=== PATIENT | male | born 1955 | race Two or more races ===

== ENCOUNTER 2018-04-12 15:11 | Emergency (ER) | payer OTHER, MEDICAID ==
[~2018-04-12] VITALS: Ht 185.4 cm; Wt 82.1 kg
[2018-04-12] MEDS ORDERED: SODIUM CHLORIDE 0.9% 500 ML IVB ONE (15:18)
[2018-04-12 16:24] LABS: Basophils # (auto) 0 uL; Basophils % (auto) 0.4 % (0.0-2.0); Chloride 103 mmol/L (98-107); Eosinophils # (auto) 0.1 uL; Eosinophils % (auto) 0.9 % (0.0-7.0); Hematocrit 29.1 % (41.0-53.0); Hemoglobin 9.4 g/dL (13.5-17.5); Lymphocytes % (auto) 33.2 % (10.0-50.0); Mean Corpuscular Hemoglobin 29.9 pg (28.0-32.0); Mean Corpuscular Hgb Conc. 32.4 g/dL (32.0-36.0); Mean Corpuscular Volume 92.2 fL (80.0-100.0); Monocytes # (auto) 1.2 uL; Monocytes % (auto) 13.7 % (0.0-12.0); Neutrophils # (auto) 4.7 uL; Neutrophils % (auto) 51.8 % (37.0-80.0); Nucleated Red Blood Cells % 0.1 %; Platelet Count (auto) 435 10^3/uL (140-450); Red Blood Cells 3.15 10^6/uL (4.5-5.90); Red Cell Distribution Width 15.6 % (11.8-14.3); Sodium 140 mmol/L (136-145)
[2018-04-12 16:28] LABS: Alanine Aminotransferase 21 U/L (16-61); Albumin 2.6 g/dL (3.4-5.0); Anion Gap 10 (5-15); Aspartate Aminotransferase 26 U/L (15-37); BUN/Creatinine Ratio 8.8; Blood Urea Nitrogen 10 mg/dL (7-18); Carbon Dioxide 27 mmol/L (21-32); GFR African American 84 mL/min; GFR Non-African American 70 mL/min; Glucose 87 mg/dL (74-106); Lipase 87 U/L (73-393); Magnesium 1.7 mg/dL (1.6-2.6)
[2018-04-12 16:32] LABS: Alkaline Phosphatase 54 U/L (45-117); Bilirubin, Total 0.2 mg/dL (0.2-1.0); Total Protein 8.7 g/dL (6.4-8.2)
[2018-04-12 16:35] VITALS: BP 126/68
[2018-04-12 17:03] LABS: Urine Bacteria NONE SEEN /hpf (None Seen); Urine Blood Negative /uL (Negative); Urine Mucus FEW (None Seen); Urine Specific Gravity 1.016 (1.001-1.035); Urine WBC 1 /hpf (0 - 3)
[2018-04-12] MEDS ORDERED: MORPHINE SULFATE 4 MG/ML SYR/VIAL IV ONE (17:15)
[2018-04-12] MEDS ORDERED: ONDANSETRON HCL 4 MG/2 ML VIAL IV ONE (17:15)
== END 2018-04-12 18:42 | disposition home or self-care (01) ==
LOC: ER 15:18
DX: K91.89 Other postprocedural complications and disorders of digestive system (principal); I10 Essential (primary) hypertension; J44.9 Chronic obstructive pulmonary disease, unspecified; F17.210 Nicotine dependence, cigarettes, uncomplicated; Z90.89 Acquired absence of other organs; Z98.890 Other specified postprocedural states
CPT/HCPCS: 36415; 71045; 74176; 80053; 81001; 83605; 83690; 83735; 84484; 85025; 87040; 93005; 94761; 96374; 96375; 99284; J2270; J2405; J7030; 96361

== ENCOUNTER 2018-11-07 09:00 | Emergency (ER) | payer OTHER, MEDICAID ==
[~2018-11-07] VITALS: Ht 182.9 cm; Wt 86.2 kg
[2018-11-07] MEDS: HYDROmorphone HCL 2 MG/ML VL IV ONE (11:10)
[2018-11-07] MEDS: DexAMETHasone SOD PHOS 10MG/1ML VIAL INJ IV ONE (11:10)
[2018-11-07] MEDS: SODIUM CHLORIDE 0.9% 1,000 ML IV ONE (11:10)
[2018-11-07] MEDS: METOCLOPRAMIDE HCL 5MG/ml INJ 2ml VIAL IV ONE (11:11)
[2018-11-07 11:29] LABS: Basophils # (auto) 0 uL; Basophils % (auto) 0.5 % (0.0-2.0); Eosinophils # (auto) 0.2 uL; Eosinophils % (auto) 3.1 % (0.0-7.0); Hematocrit 37.3 % (41.0-53.0); Hemoglobin 12.1 g/dL (13.5-17.5); Lymphocytes # (auto) 2.6 uL; Lymphocytes % (auto) 35.9 % (10.0-50.0); Mean Corpuscular Hemoglobin 29.8 pg (28.0-32.0); Mean Corpuscular Hgb Conc. 32.3 g/dL (32.0-36.0); Mean Corpuscular Volume 92.2 fL (80.0-100.0); Monocytes # (auto) 0.5 uL; Monocytes % (auto) 7.5 % (0.0-12.0); Neutrophils # (auto) 3.8 uL; Nucleated Red Blood Cells % 0.1 %; Platelet Count (auto) 232 10^3/uL (140-450); Red Blood Cells 4.04 10^6/uL (4.5-5.90); Red Cell Distribution Width 17.6 % (11.8-14.3); White Blood Cell 7.1 10^3/uL (4.4-10.8)
[2018-11-07 11:34] LABS: Albumin 3.2 g/dL (3.4-5.0); Calcium 8.2 mg/dL (8.5-10.1); Magnesium 2.2 mg/dL (1.6-2.6); Potassium 3.3 mmol/L (3.5-5.1)
[2018-11-07 11:37] LABS: BUN/Creatinine Ratio 9.4; Bilirubin, Total 0.2 mg/dL (0.2-1.0); Total Protein 8.5 g/dL (6.4-8.2)
[2018-11-07 13:03] VITALS: BP 138/79
[2018-11-07] MEDS: POTASSIUM EFFERVESENT TAB 25 MEQ PO ONE (13:18)
== END 2018-11-07 13:43 | disposition home or self-care (01) ==
LOC: EDBD 09:00 → ER 09:00
DX: M54.5 Low back pain (principal); G89.29 Other chronic pain; M54.16 Radiculopathy, lumbar region; E87.6 Hypokalemia; E46 Unspecified protein-calorie malnutrition; J44.9 Chronic obstructive pulmonary disease, unspecified; F17.210 Nicotine dependence, cigarettes, uncomplicated; Z68.25 Body mass index [BMI] 25.0-25.9, adult; Z88.0 Allergy status to penicillin
CPT/HCPCS: 36415; 72131; 80053; 83735; 85025; 93005; 96374; 96375; 99284; J1100; J1170; J2765; J7030; 96361

== ENCOUNTER 2020-08-04 02:48 | Inpatient (IN) | payer OTHER, MEDICAID ==
[~2020-08-04] VITALS: Ht 182.9 cm; Wt 83.0 kg
[2020-08-04] VITALS (73 sets, daily range): BP systolic 74–157; BP diastolic 19–89
[2020-08-04] MEDS: SODIUM CHLORIDE 0.9% 2,000 ML IV ONE (03:30)
[2020-08-04] MEDS: NOREPINEPHRINE 8 MG/250ML KIT 250 ML IV SCH ×3 (03:40→13:59)
[2020-08-04] MEDS ORDERED: NOREPINEPHRINE 8 MG/250ML KIT 250 ML IV SCH (03:45)
[2020-08-04] MEDS ORDERED: SUCCINYLCHOLINE CHLORIDE 20 MG/ML 10ML VIAL IV ONE ×2 (04:10→04:15)
[2020-08-04] MEDS ORDERED: ETOMIDATE (2MG/ML) 20ML VIAL IV ONE ×2 (04:10→04:15)
[2020-08-04] MEDS ORDERED: MIDAZOLAM DRIP 50 mg/50mL 50 ML IV ONE (04:29)
[2020-08-04] MEDS ORDERED: OCTREOTIDE ACETATE 100 MCG/ML VL SUBCUT ONE (04:30)
[2020-08-04] MEDS ORDERED: SODIUM CHLORIDE 0.9% 2,050 ML IV ONE (04:30)
[2020-08-04] MEDS ORDERED: MIDAZOLAM DRIP 50 mg/50mL 50 ML IV SCH (04:30)
[2020-08-04] MEDS ORDERED: PANTOPRAZOLE 40mg/50ML NS AE 50 ML IV ONE (04:30)
[2020-08-04] MEDS ORDERED: ONDANSETRON HCL 4 MG/2 ML VIAL IV ONE (04:30)
[2020-08-04 04:32] LABS: Basophils # (auto) 0.1 10 ^3/uL (0-0.2); Basophils % (auto) 0.7 % (0.0-2.0); Eosinophils # (auto) 0.1 10 ^3/uL (0-0.8); Eosinophils % (auto) 0.4 % (0.0-7.0); Hematocrit 30.3 % (41.0-53.0); Hemoglobin 9.8 g/dL (13.5-17.5); Lymphocytes # (auto) 4.4 10 ^3/uL (0.4-5.4); Lymphocytes % (auto) 32.2 % (10.0-50.0); Mean Corpuscular Hemoglobin 29.7 pg (28.0-32.0); Mean Corpuscular Hgb Conc. 32.2 g/dL (32.0-36.0); Mean Corpuscular Volume 92.2 fL (80.0-100.0); Monocytes # (auto) 1.2 10 ^3/uL (0-1.3); Monocytes % (auto) 8.8 % (0.0-12.0); Neutrophils % (auto) 57.9 % (37.0-80.0); Platelet Count (auto) 268 10^3/uL (140-450); Red Blood Cells 3.28 10^6/uL (4.5-5.90); Red Cell Distribution Width 17.3 % (11.8-14.3); White Blood Cell 13.7 10^3/uL (4.4-10.8)
[2020-08-04] MEDS ORDERED: ROCURONIUM 10MG/ML 10ML VIAL IV ONE ×2 (04:44→04:45)
[2020-08-04 04:47] LABS: INR 1.33 (0.9-1.15); Partial Thromboplastin Time 28.9 sec (23.0-31.2)
[2020-08-04 04:53] LABS: Albumin 2.5 g/dL (3.4-5.0); BUN/Creatinine Ratio 10.7; Calcium 7.7 mg/dL (8.5-10.1)
[2020-08-04 04:55] LABS: Lactic Acid w/Reflex 3.8 mmol/L (0.4-2.0)
[2020-08-04 04:56] LABS: Bilirubin, Total 0.3 mg/dL (0.2-1.0)
[2020-08-04] MEDS: fentaNYL Drip 2500mCg/250mlNS 250 ML IV SCH ×2 (05:00→17:09)
[2020-08-04 05:01] LABS: Potassium 2.6 mmol/L (3.5-5.1)
[2020-08-04] MEDS ORDERED: fentaNYL Drip 2500mCg/250mlNS 250 ML IV ONE (05:03)
[2020-08-04] MEDS: MIDAZOLAM DRIP 50 mg/50mL 50 ML IV SCH ×4 (05:15→19:34)
[2020-08-04] MEDS ORDERED: POTASSIUM EFFERVESENT TAB 25 MEQ GT ONE (05:15)
[2020-08-04] MEDS ORDERED: OCTREOTIDE ACETATE 500 MCG/ML VL ONE (05:21)
[2020-08-04 05:24] LABS: Magnesium 1.6 mg/dL (1.6-2.6)
[2020-08-04] MEDS ORDERED: OCTREOTIDE ACETATE 50 MCG in SODIUM CHL 0.9% 50 ML IV ONE (05:30)
[2020-08-04] MEDS: OCTREOTIDE ACETATE 500 MCG in SODIUM CHL 0.9% 99 ML IV SCH ×3 (05:30→22:44)
[2020-08-04] MEDS ORDERED: PROPOFOL 0 ML IV ONE (05:56)
[2020-08-04] MEDS ORDERED: PROPOFOL 100 ML IV SCH (06:00)
[2020-08-04] MEDS ORDERED: MORPHINE SULFATE 4 MG/ML SYR/VIAL IV PRN (06:00)
[2020-08-04] MEDS ORDERED: ALBUMIN 5% 250 ML IV ONE (06:00)
[2020-08-04] MEDS ORDERED: VANCOMYCIN PER PHARMACY 0 MG IV SCH (06:00)
[2020-08-04] MEDS ORDERED: NITROGLYCERIN 0.4 MG SL TAB SL PRN (06:00)
[2020-08-04] MEDS ORDERED: MORPHINE SULF INJ 2 MG/ML SYRINGE 1ML IV PRN (06:00)
[2020-08-04] MEDS ORDERED: ONDANSETRON HCL 4 MG/2 ML VIAL IV PRN (06:00)
[2020-08-04] MEDS: POTASSIUM CHL 20MEQ/100ML 100 ML IV SCH ×2 (06:03→07:30)
[2020-08-04 06:09] LABS: Urine Bacteria FEW /hpf (None Seen); Urine Blood 3+ /uL (Negative); Urine Hyaline Cast MOD /lpf (0 - 2); Urine Mucus FEW (None Seen); Urine Specific Gravity 1.021 (1.001-1.035); Urine WBC 11 /hpf (0 - 3)
[2020-08-04] MEDS ORDERED: VANCOMYCIN 1GM/250ML 250 ML IV ONE (06:45)
[2020-08-04] MEDS: SODIUM CHLORIDE 0.9% 1,000 ML IV SCH ×2 (08:15→22:44)
[2020-08-04] MEDS: PROPOFOL 100 ML IV SCH ×2 (10:00→18:00)
[2020-08-04] MEDS: HEPARIN SODIUM (PORCINE) 5000 UNITS/ML 1ML VIAL SC SCH ×2 (10:44→21:59)
[2020-08-04] MEDS: PHENYLEPHRINE IV 250 ML IV SCH ×3 (10:44→20:54)
[2020-08-04] MEDS: FAMOTIDINE (10MG/ML) 2ML VL IV SCH ×2 (10:44→21:59)
[2020-08-04 10:56] LABS: Magnesium 1.3 mg/dL (1.6-2.6); Potassium 4.8 mmol/L (3.5-5.1)
[2020-08-04] MEDS ORDERED: SODIUM CHLORIDE 0.9% 250 ML IV ONE (11:00)
[2020-08-04] MEDS: NOREPINEPHRINE BITARTRATE 32 MG in SODIUM CHL 0.9% 218 ML IV SCH (19:00)
[2020-08-04] MEDS: ACETAMINOPHEN 650 MG RECT SUPP PR PRN (23:21)
[2020-08-05] VITALS (110 sets, daily range): BP systolic 64–167; BP diastolic 30–78
[2020-08-05] MEDS: PHENYLEPHRINE IV 250 ML IV SCH ×7 (00:26→13:54)
[2020-08-05] MEDS: MIDAZOLAM DRIP 50 mg/50mL 50 ML IV SCH ×4 (00:27→17:29)
[2020-08-05] MEDS: fentaNYL Drip 2500mCg/250mlNS 250 ML IV SCH ×2 (04:02→20:00)
[2020-08-05 07:27] LABS: Basophils # (auto) 0 10 ^3/uL (0-0.2); Eosinophils # (auto) 0.1 10 ^3/uL (0-0.8); Eosinophils % (auto) 0.6 % (0.0-7.0); Lymphocytes # (auto) 3.9 10 ^3/uL (0.4-5.4); Mean Corpuscular Hgb Conc. 32.6 g/dL (32.0-36.0); Monocytes # (auto) 1.1 10 ^3/uL (0-1.3); Nucleated Red Blood Cells % 0.1 %
[2020-08-05 07:29] LABS: Basophils % (auto) 0.3 % (0.0-2.0); Mean Corpuscular Hemoglobin 30.3 pg (28.0-32.0); Mean Corpuscular Volume 92.9 fL (80.0-100.0); Monocytes % (auto) 10.1 % (0.0-12.0); Neutrophils # (auto) 5.7 10 ^3/uL (1.6-8.6); Platelet Count (auto) 168 10^3/uL (140-450); Red Blood Cells 2.16 10^6/uL (4.5-5.90); Red Cell Distribution Width 16.9 % (11.8-14.3); White Blood Cell 10.7 10^3/uL (4.4-10.8)
[2020-08-05 07:32] LABS: Hemoglobin 6.5 g/dL (13.5-17.5)
[2020-08-05 08:21] LABS: Albumin 2.1 g/dL (3.4-5.0); BUN/Creatinine Ratio 12.3; Calcium 6.8 mg/dL (8.5-10.1)
[2020-08-05 08:24] LABS: Bilirubin, Total 1.3 mg/dL (0.2-1.0); Total Protein 5.4 g/dL (6.4-8.2)
[2020-08-05 08:28] LABS: Potassium 2.5 mmol/L (3.5-5.1)
[2020-08-05] MEDS: OCTREOTIDE ACETATE 500 MCG in SODIUM CHL 0.9% 99 ML IV SCH ×2 (08:30→18:33)
[2020-08-05] MEDS ORDERED: POTASSIUM CHL 20MEQ/100ML 100 ML IV ONE ×2 (09:45→14:30)
[2020-08-05] MEDS: HEPARIN SODIUM (PORCINE) 5000 UNITS/ML 1ML VIAL SC SCH ×2 (09:50→21:06)
[2020-08-05] MEDS: FAMOTIDINE (10MG/ML) 2ML VL IV SCH (09:50)
[2020-08-05] MEDS ORDERED: POTASSIUM CHLORIDE IV ONE (10:30)
[2020-08-05] MEDS ORDERED: SODIUM CHL 0.9% IV ONE (10:30)
[2020-08-05] MEDS: NOREPINEPHRINE BITARTRATE 32 MG in SODIUM CHL 0.9% 218 ML IV SCH (11:25)
[2020-08-05] MEDS ORDERED: VANCOMYCIN 1GM/250ML 250 ML IV ONE (11:30)
[2020-08-05] MEDS: SODIUM CHLORIDE 0.9% 1,000 ML IV SCH (15:30)
[2020-08-06] VITALS (106 sets, daily range): BP systolic 58–122; BP diastolic 35–68
[2020-08-06 04:40] LABS: Basophils # (auto) 0 10 ^3/uL (0-0.2); Basophils % (auto) 0.3 % (0.0-2.0); Eosinophils # (auto) 0.1 10 ^3/uL (0-0.8); Eosinophils % (auto) 1.1 % (0.0-7.0); Hematocrit 29.8 % (41.0-53.0); Hemoglobin 10.1 g/dL (13.5-17.5); Lymphocytes % (auto) 30.2 % (10.0-50.0); Mean Corpuscular Hemoglobin 31.5 pg (28.0-32.0); Mean Corpuscular Hgb Conc. 33.7 g/dL (32.0-36.0); Mean Corpuscular Volume 93.3 fL (80.0-100.0); Monocytes # (auto) 0.9 10 ^3/uL (0-1.3); Monocytes % (auto) 9.2 % (0.0-12.0); Neutrophils # (auto) 5.9 10 ^3/uL (1.6-8.6); Neutrophils % (auto) 59.2 % (37.0-80.0); Nucleated Red Blood Cells % 0.1 %; Platelet Count (auto) 144 10^3/uL (140-450); Red Cell Distribution Width 15.8 % (11.8-14.3)
[2020-08-06 04:56] LABS: Potassium 3.1 mmol/L (3.5-5.1)
[2020-08-06 05:04] LABS: Albumin 1.8 g/dL (3.4-5.0); BUN/Creatinine Ratio 19.2; Bilirubin, Total 3.2 mg/dL (0.2-1.0); Calcium 6.9 mg/dL (8.5-10.1); Total Protein 5.1 g/dL (6.4-8.2)
[2020-08-06] MEDS: PROPOFOL 100 ML IV SCH (05:14)
[2020-08-06] MEDS: ACETAMINOPHEN 650 MG RECT SUPP PR PRN (05:30)
[2020-08-06] MEDS: OCTREOTIDE ACETATE 500 MCG in SODIUM CHL 0.9% 99 ML IV SCH ×2 (06:30→18:15)
[2020-08-06] MEDS: SODIUM CHLORIDE 0.9% 1,000 ML IV SCH (08:00)
[2020-08-06 09:38] LABS: Folate (Folic Acid) 22.43 ng/mL (5.38-24)
[2020-08-06] MEDS ORDERED: FAMOTIDINE (10MG/ML) 2ML VL IV SCH (10:00)
[2020-08-06] MEDS ORDERED: VANCOMYCIN 1GM/250ML 250 ML IV ONE (10:00)
[2020-08-06] MEDS: PHENYLEPHRINE IV 250 ML IV SCH (10:11)
[2020-08-06 10:18] LABS: Hepatitis B Surface Antibody Negative
[2020-08-06 10:51] LABS: Hepatitis A Total Antibody Negative
[2020-08-06] MEDS: POTASSIUM CHL 20MEQ/100ML 100 ML IV SCH ×2 (12:03→13:30)
[2020-08-06] MEDS: SOD CHL 0.45% 1,000 ML IV SCH (12:04)
[2020-08-06 12:58] LABS: Hepatitis B Core Total AB Negative
[2020-08-06 12:59] LABS: Hepatitis B Surface Antigen Negative (Negative); Hepatitis C Antibody Negative (Negative)
[2020-08-06] MEDS ORDERED: PHENYLEPHRINE IV 250 ML IV ONE (16:25)
[2020-08-06] MEDS: VASOPRESSIN 50 UNITS in D5W 5% 247.5 ML IV SCH (18:15)
[2020-08-06] MEDS: PANTOPRAZOLE 40mg/50ML NS AE 50 ML IV SCH ×2 (18:15→18:47)
[2020-08-06] MEDS: NOREPINEPHRINE BITARTRATE 32 MG in SODIUM CHL 0.9% 218 ML IV SCH (18:15)
[2020-08-06] MEDS: PHENYLEPHRINE INJ 40 MG in SODIUM CHL 0.9% 246 ML IV SCH ×2 (18:16→22:00)
[2020-08-06] MEDS: MUPIROCIN 2% OINT 15gm or 22gm EACHNOSTRI SCH (22:00)
[2020-08-07] VITALS (109 sets, daily range): BP systolic 81–169; BP diastolic 50–116
[2020-08-07] MEDS: MIDAZOLAM DRIP 50 mg/50mL 50 ML IV SCH ×4 (01:00→22:00)
[2020-08-07] MEDS: SOD CHL 0.45% 1,000 ML IV SCH ×2 (01:00→09:11)
[2020-08-07] MEDS: OCTREOTIDE ACETATE 500 MCG in SODIUM CHL 0.9% 99 ML IV SCH ×3 (02:30→22:30)
[2020-08-07] MEDS: PANTOPRAZOLE 40mg/50ML NS AE 50 ML IV SCH ×5 (03:00→20:00)
[2020-08-07 04:31] LABS: Basophils # (auto) 0 10 ^3/uL (0-0.2); Eosinophils # (auto) 0.1 10 ^3/uL (0-0.8); Nucleated Red Blood Cells % 0.1 %; Red Cell Distribution Width 15.6 % (11.8-14.3)
[2020-08-07 04:33] LABS: Basophils % (auto) 0.2 % (0.0-2.0); Hematocrit 20.6 % (41.0-53.0); Lymphocytes % (auto) 31.2 % (10.0-50.0); Mean Corpuscular Hemoglobin 31.2 pg (28.0-32.0); Mean Corpuscular Hgb Conc. 33.4 g/dL (32.0-36.0); Mean Corpuscular Volume 93.6 fL (80.0-100.0); Monocytes # (auto) 0.7 10 ^3/uL (0-1.3); Monocytes % (auto) 7.1 % (0.0-12.0); Neutrophils # (auto) 5.7 10 ^3/uL (1.6-8.6); Neutrophils % (auto) 60.5 % (37.0-80.0); Platelet Count (auto) 127 10^3/uL (140-450); White Blood Cell 9.4 10^3/uL (4.4-10.8)
[2020-08-07 04:41] LABS: Albumin 1.5 g/dL (3.4-5.0); Calcium 6.8 mg/dL (8.5-10.1); Magnesium 1.1 mg/dL (1.6-2.6); Potassium 3.9 mmol/L (3.5-5.1)
[2020-08-07 04:46] LABS: Bilirubin, Total 1.3 mg/dL (0.2-1.0); Total Protein 4.6 g/dL (6.4-8.2)
[2020-08-07 04:55] LABS: Hemoglobin 6.9 g/dL (13.5-17.5)
[2020-08-07 05:02] LABS: Triglycerides 130 mg/dL (< 150)
[2020-08-07 05:04] LABS: Cholesterol 64 mg/dL (< 200); HDL Cholesterol 13 mg/dL (40-59); LDL Cholesterol 23 mg/dL (< 100)
[2020-08-07] MEDS: PROPOFOL 100 ML IV SCH (05:28)
[2020-08-07] MEDS: PHENYLEPHRINE INJ 40 MG in SODIUM CHL 0.9% 246 ML IV SCH ×3 (07:33→18:39)
[2020-08-07] MEDS ORDERED: METOCLOPRAMIDE HCL 5MG/ml INJ 2ml VIAL ONE (08:05)
[2020-08-07] MEDS ORDERED: diphenhdrAMINE HCL 50 MG/1 ML VL ONE (08:14)
[2020-08-07] MEDS ORDERED: fentaNYL CITRATE 100 MCG/2 ML VL ONE (08:14)
[2020-08-07] MEDS ORDERED: METOCLOPRAMIDE HCL 5MG/ml INJ 2ml VIAL IV ONE (08:15)
[2020-08-07] MEDS: fentaNYL Drip 2500mCg/250mlNS 250 ML IV SCH (09:10)
[2020-08-07] MEDS ORDERED: VANCOMYCIN 1GM/250ML 250 ML IV SCH (10:00)
[2020-08-07] MEDS: MUPIROCIN 2% OINT 15gm or 22gm EACHNOSTRI SCH ×2 (10:00→22:00)
[2020-08-07] MEDS: MIDAZOLAM HCL 5 MG/ML-1ML VIAL ONE ×2 (10:49→11:03)
[2020-08-07 11:07] LABS: INR 1.18 (0.9-1.15)
[2020-08-07] MEDS: MAGNESIUM SULFATE 1GM/100ML 100 ML IV SCH ×2 (11:49→13:16)
[2020-08-07] MEDS: NOREPINEPHRINE BITARTRATE 32 MG in SODIUM CHL 0.9% 218 ML IV SCH (13:45)
[2020-08-07] MEDS ORDERED: cefTRIAXone 1GM/50ML D5W 50 ML IV ONE (15:30)
[2020-08-07] MEDS ORDERED: AZITHROMYCIN 500MG/ 250ML 250 ML IV ONE (15:30)
[2020-08-07] MEDS: VASOPRESSIN 50 UNITS in D5W 5% 247.5 ML IV SCH (15:58)
[2020-08-07] MEDS ORDERED: MAGNESIUM SULFATE 1GM/100ML 100 ML IV SCH (16:00)
[2020-08-07 16:12] LABS: Hematocrit 27.5 % (41.0-53.0); Hemoglobin 9.6 g/dL (13.5-17.5)
[2020-08-07] MEDS: ACETAMINOPHEN 650 mg PER 20.3 mL UD GT PRN (17:56)
[2020-08-08] VITALS (68 sets, daily range): BP systolic 82–137; BP diastolic 48–79
[2020-08-08] MEDS: PANTOPRAZOLE 40mg/50ML NS AE 50 ML IV SCH ×5 (00:09→20:40)
[2020-08-08] MEDS: SOD CHL 0.45% 1,000 ML IV SCH ×2 (03:00→17:28)
[2020-08-08] MEDS ORDERED: PANTOPRAZOLE 40mg/50ML NS AE 50 ML IV ONE (03:43)
[2020-08-08 04:27] LABS: Albumin 1.5 g/dL (3.4-5.0); Calcium 6.8 mg/dL (8.5-10.1); Magnesium 1.3 mg/dL (1.6-2.6); Potassium 3.6 mmol/L (3.5-5.1)
[2020-08-08 04:31] LABS: BUN/Creatinine Ratio 20.2; Bilirubin, Total 1.2 mg/dL (0.2-1.0); Phosphorus 3.3 mg/dL (2.5-4.90); Total Protein 4.8 g/dL (6.4-8.2)
[2020-08-08 04:42] LABS: Basophils # (auto) 0 10 ^3/uL (0-0.2); Basophils % (auto) 0.2 % (0.0-2.0); Eosinophils # (auto) 0.1 10 ^3/uL (0-0.8); Eosinophils % (auto) 0.6 % (0.0-7.0); Hematocrit 26.4 % (41.0-53.0); Hemoglobin 9.1 g/dL (13.5-17.5); Lymphocytes # (auto) 2.6 10 ^3/uL (0.4-5.4); Lymphocytes % (auto) 32.3 % (10.0-50.0); Mean Corpuscular Hemoglobin 31.7 pg (28.0-32.0); Mean Corpuscular Hgb Conc. 34.4 g/dL (32.0-36.0); Mean Corpuscular Volume 92.4 fL (80.0-100.0); Monocytes # (auto) 0.9 10 ^3/uL (0-1.3); Monocytes % (auto) 10.8 % (0.0-12.0); Neutrophils # (auto) 4.6 10 ^3/uL (1.6-8.6); Neutrophils % (auto) 56.1 % (37.0-80.0); Nucleated Red Blood Cells % 0.2 %; Platelet Count (auto) 101 10^3/uL (140-450); Red Blood Cells 2.86 10^6/uL (4.5-5.90); Red Cell Distribution Width 15.3 % (11.8-14.3); White Blood Cell 8.1 10^3/uL (4.4-10.8)
[2020-08-08 05:11] LABS: INR 1.14 (0.9-1.15)
[2020-08-08] MEDS: NOREPINEPHRINE BITARTRATE 32 MG in SODIUM CHL 0.9% 218 ML IV SCH (08:16)
[2020-08-08] MEDS: fentaNYL Drip 2500mCg/250mlNS 250 ML IV SCH (08:19)
[2020-08-08] MEDS: cefTRIAXone 1GM/50ML D5W 50 ML IV SCH (09:16)
[2020-08-08] MEDS: OCTREOTIDE ACETATE 500 MCG in SODIUM CHL 0.9% 99 ML IV SCH ×2 (09:29→18:30)
[2020-08-08] MEDS: AZITHROMYCIN 500MG/ 250ML 250 ML IV SCH (11:01)
[2020-08-08] MEDS: MAGNESIUM SULFATE 1GM/100ML 100 ML IV SCH ×2 (11:01→11:08)
[2020-08-08] MEDS: MUPIROCIN 2% OINT 15gm or 22gm EACHNOSTRI SCH ×2 (11:01→22:13)
[2020-08-08] MEDS: MIDAZOLAM DRIP 50 mg/50mL 50 ML IV SCH ×3 (14:31→22:58)
[2020-08-08 15:41] LABS: Hematocrit 25.9 % (41.0-53.0); Hemoglobin 8.8 g/dL (13.5-17.5)
[2020-08-08] MEDS: PROPOFOL 100 ML IV SCH (23:00)
[2020-08-09] VITALS (44 sets, daily range): BP systolic 86–142; BP diastolic 48–67
[2020-08-09] MEDS: PANTOPRAZOLE 40mg/50ML NS AE 50 ML IV SCH ×5 (02:04→22:00)
[2020-08-09] MEDS: MIDAZOLAM DRIP 50 mg/50mL 50 ML IV SCH ×9 (02:04→23:21)
[2020-08-09] MEDS: fentaNYL Drip 2500mCg/250mlNS 250 ML IV SCH ×2 (03:39→14:18)
[2020-08-09] MEDS: OCTREOTIDE ACETATE 500 MCG in SODIUM CHL 0.9% 99 ML IV SCH ×3 (04:30→20:03)
[2020-08-09] MEDS: PROPOFOL 100 ML IV SCH (04:32)
[2020-08-09 04:44] LABS: Basophils # (auto) 0 10 ^3/uL (0-0.2); Basophils % (auto) 0.1 % (0.0-2.0); Eosinophils # (auto) 0 10 ^3/uL (0-0.8); Eosinophils % (auto) 0.6 % (0.0-7.0); Hematocrit 22.6 % (41.0-53.0); Hemoglobin 7.7 g/dL (13.5-17.5); Mean Corpuscular Hemoglobin 31.9 pg (28.0-32.0); Mean Corpuscular Hgb Conc. 34.3 g/dL (32.0-36.0); Mean Corpuscular Volume 93.2 fL (80.0-100.0); Monocytes % (auto) 12.6 % (0.0-12.0); Neutrophils # (auto) 4.7 10 ^3/uL (1.6-8.6); Neutrophils % (auto) 60.7 % (37.0-80.0); Platelet Count (auto) 83 10^3/uL (140-450); Red Blood Cells 2.43 10^6/uL (4.5-5.90); Red Cell Distribution Width 15.3 % (11.8-14.3); White Blood Cell 7.8 10^3/uL (4.4-10.8)
[2020-08-09 05:01] LABS: Potassium 3.3 mmol/L (3.5-5.1)
[2020-08-09 05:07] LABS: Albumin 1.5 g/dL (3.4-5.0); BUN/Creatinine Ratio 22.8; Bilirubin, Total 0.9 mg/dL (0.2-1.0); Calcium 6.9 mg/dL (8.5-10.1); Magnesium 1.5 mg/dL (1.6-2.6); Total Protein 4.8 g/dL (6.4-8.2)
[2020-08-09] MEDS: MAGNESIUM SULFATE 1GM/100ML 100 ML IV SCH ×4 (10:08→12:48)
[2020-08-09] MEDS: cefTRIAXone 1GM/50ML D5W 50 ML IV SCH (10:26)
[2020-08-09] MEDS: MUPIROCIN 2% OINT 15gm or 22gm EACHNOSTRI SCH ×2 (10:38→22:00)
[2020-08-09] MEDS: AZITHROMYCIN 500MG/ 250ML 250 ML IV SCH (10:40)
[2020-08-09] MEDS ORDERED: VANCOMYCIN PER PHARMACY 0 MG IV SCH (11:45)
[2020-08-09] MEDS: POTASSIUM CHLORIDE 20 MEQ in SOD CHL 0.45% 1,000 ML IV SCH (12:09)
[2020-08-09] MEDS: POTASSIUM CHL 20MEQ/100ML 100 ML IV SCH ×2 (12:10→15:07)
[2020-08-09] MEDS: ALBUMIN 25% 100 ML IV SCH ×2 (12:12→19:45)
[2020-08-09] MEDS: VANCOMYCIN 1GM/250ML 250 ML IV SCH ×2 (12:13→20:23)
[2020-08-09] MEDS: IPRATROPIUM BROM 0.5 MG/2.5ML INH SOL NEB PRN (18:20)
[2020-08-09] MEDS: ALBUTEROL SULF 2.5 MG/0.5ML(0.5%) NEB SOLN NEB PRN (18:20)
[2020-08-09 20:13] LABS: Hemoglobin 7.9 g/dL (13.5-17.5)
[2020-08-10] VITALS (91 sets, daily range): BP systolic 72–141; BP diastolic 33–77
[2020-08-10] MEDS: POTASSIUM CHLORIDE 20 MEQ in SOD CHL 0.45% 1,000 ML IV SCH ×3 (00:13→22:00)
[2020-08-10] MEDS: PANTOPRAZOLE 40mg/50ML NS AE 50 ML IV SCH ×5 (01:21→22:57)
[2020-08-10] MEDS: MIDAZOLAM DRIP 50 mg/50mL 50 ML IV SCH ×2 (02:30→22:00)
[2020-08-10] MEDS: ALBUMIN 25% 100 ML IV SCH (03:13)
[2020-08-10] MEDS: PROPOFOL 100 ML IV SCH ×3 (03:14→14:10)
[2020-08-10] MEDS: fentaNYL Drip 2500mCg/250mlNS 250 ML IV SCH ×2 (03:15→23:00)
[2020-08-10] MEDS: OCTREOTIDE ACETATE 500 MCG in SODIUM CHL 0.9% 99 ML IV SCH ×4 (03:15→22:00)
[2020-08-10] MEDS: VANCOMYCIN 1GM/250ML 250 ML IV SCH ×4 (03:21→18:46)
[2020-08-10 04:57] LABS: Basophils # (auto) 0 10 ^3/uL (0-0.2); Basophils % (auto) 0.2 % (0.0-2.0); Eosinophils # (auto) 0.2 10 ^3/uL (0-0.8); Lymphocytes # (auto) 1.8 10 ^3/uL (0.4-5.4); Nucleated Red Blood Cells % 0.1 %; Platelet Count (auto) 83 10^3/uL (140-450)
[2020-08-10 05:01] LABS: Eosinophils % (auto) 2.4 % (0.0-7.0); Lymphocytes % (auto) 25.1 % (10.0-50.0); Mean Corpuscular Hemoglobin 31.8 pg (28.0-32.0); Mean Corpuscular Hgb Conc. 34.4 g/dL (32.0-36.0); Mean Corpuscular Volume 92.5 fL (80.0-100.0); Monocytes # (auto) 1.1 10 ^3/uL (0-1.3); Monocytes % (auto) 14.8 % (0.0-12.0); Neutrophils # (auto) 4.1 10 ^3/uL (1.6-8.6); Neutrophils % (auto) 57.5 % (37.0-80.0); Red Blood Cells 2.17 10^6/uL (4.5-5.90); Red Cell Distribution Width 14.8 % (11.8-14.3); White Blood Cell 7.1 10^3/uL (4.4-10.8)
[2020-08-10 05:15] LABS: INR 1.11 (0.9-1.15)
[2020-08-10 05:16] LABS: Potassium 3.5 mmol/L (3.5-5.1)
[2020-08-10 05:23] LABS: Albumin 1.8 g/dL (3.4-5.0); BUN/Creatinine Ratio 19.3; Bilirubin, Total 0.6 mg/dL (0.2-1.0); Magnesium 1.6 mg/dL (1.6-2.6); Total Protein 4.9 g/dL (6.4-8.2)
[2020-08-10 05:26] LABS: Hemoglobin 6.9 g/dL (13.5-17.5)
[2020-08-10] MEDS: ACETAMINOPHEN 650 mg PER 20.3 mL UD GT PRN (05:26)
[2020-08-10] MEDS: MUPIROCIN 2% OINT 15gm or 22gm EACHNOSTRI SCH ×2 (12:34→22:00)
[2020-08-10] MEDS: NOREPINEPHRINE BITARTRATE 32 MG in SODIUM CHL 0.9% 218 ML IV SCH ×2 (14:30→18:44)
[2020-08-10 22:22] LABS: Hemoglobin 7.7 g/dL (13.5-17.5)
[2020-08-10 22:25] LABS: Hematocrit 22.6 % (41.0-53.0)
[2020-08-11] VITALS (101 sets, daily range): BP systolic 91–128; BP diastolic 48–70
[2020-08-11] MEDS: MIDAZOLAM DRIP 50 mg/50mL 50 ML IV SCH ×2 (01:00→21:11)
[2020-08-11] MEDS: PANTOPRAZOLE 40mg/50ML NS AE 50 ML IV SCH ×5 (01:00→21:09)
[2020-08-11] MEDS: NOREPINEPHRINE BITARTRATE 32 MG in SODIUM CHL 0.9% 218 ML IV SCH ×2 (03:00→14:30)
[2020-08-11 04:24] LABS: Basophils # (auto) 0 10 ^3/uL (0-0.2); Basophils % (auto) 0.3 % (0.0-2.0); Eosinophils # (auto) 0.2 10 ^3/uL (0-0.8); Eosinophils % (auto) 2.9 % (0.0-7.0); Hematocrit 22.9 % (41.0-53.0); Hemoglobin 7.7 g/dL (13.5-17.5); Lymphocytes # (auto) 2.5 10 ^3/uL (0.4-5.4); Lymphocytes % (auto) 32.5 % (10.0-50.0); Mean Corpuscular Hemoglobin 31.9 pg (28.0-32.0); Mean Corpuscular Hgb Conc. 33.7 g/dL (32.0-36.0); Mean Corpuscular Volume 94.5 fL (80.0-100.0); Monocytes % (auto) 12.8 % (0.0-12.0); Neutrophils % (auto) 51.5 % (37.0-80.0); Platelet Count (auto) 94 10^3/uL (140-450); Red Blood Cells 2.43 10^6/uL (4.5-5.90); Red Cell Distribution Width 14.8 % (11.8-14.3); White Blood Cell 7.8 10^3/uL (4.4-10.8)
[2020-08-11 04:32] LABS: BUN/Creatinine Ratio 13.5; Calcium 7.1 mg/dL (8.5-10.1); Potassium 3.8 mmol/L (3.5-5.1)
[2020-08-11] MEDS: VANCOMYCIN 1GM/250ML 250 ML IV SCH ×2 (05:55→18:00)
[2020-08-11] MEDS: MUPIROCIN 2% OINT 15gm or 22gm EACHNOSTRI SCH (10:50)
[2020-08-11 11:45] LABS: Hematocrit 22.1 % (41.0-53.0)
[2020-08-11 11:47] LABS: Hemoglobin 7.4 g/dL (13.5-17.5)
[2020-08-11] MEDS ORDERED: MAGNESIUM SULFATE 1GM/100ML 100 ML IV SCH (14:00)
[2020-08-11] MEDS: POTASSIUM CHLORIDE 20 MEQ in SOD CHL 0.45% 1,000 ML IV SCH ×2 (15:27→16:37)
[2020-08-11] MEDS: fentaNYL Drip 2500mCg/250mlNS 250 ML IV SCH (17:25)
[2020-08-11] MEDS: PROPOFOL 100 ML IV SCH ×2 (21:11)
[2020-08-11 22:49] LABS: Hematocrit 27.2 % (41.0-53.0); Hemoglobin 9.4 g/dL (13.5-17.5)
[2020-08-12] VITALS (104 sets, daily range): BP systolic 91–137; BP diastolic 53–74
[2020-08-12] MEDS: PANTOPRAZOLE 40mg/50ML NS AE 50 ML IV SCH ×3 (01:38→10:41)
[2020-08-12 03:59] LABS: Basophils # (auto) 0 10 ^3/uL (0-0.2); Basophils % (auto) 0.3 % (0.0-2.0); Eosinophils # (auto) 0.3 10 ^3/uL (0-0.8); Eosinophils % (auto) 3.3 % (0.0-7.0); Hematocrit 26.6 % (41.0-53.0); Hemoglobin 9.1 g/dL (13.5-17.5); Lymphocytes % (auto) 31.4 % (10.0-50.0); Mean Corpuscular Hemoglobin 31.8 pg (28.0-32.0); Mean Corpuscular Hgb Conc. 34.1 g/dL (32.0-36.0); Mean Corpuscular Volume 93.1 fL (80.0-100.0); Monocytes # (auto) 1.2 10 ^3/uL (0-1.3); Monocytes % (auto) 12.3 % (0.0-12.0); Neutrophils % (auto) 52.7 % (37.0-80.0); Platelet Count (auto) 135 10^3/uL (140-450); Red Blood Cells 2.86 10^6/uL (4.5-5.90); Red Cell Distribution Width 14.9 % (11.8-14.3); White Blood Cell 9.5 10^3/uL (4.4-10.8)
[2020-08-12 04:16] LABS: Albumin 1.7 g/dL (3.4-5.0); Calcium 6.9 mg/dL (8.5-10.1); Magnesium 1.2 mg/dL (1.6-2.6); Potassium 3.5 mmol/L (3.5-5.1)
[2020-08-12 04:18] LABS: BUN/Creatinine Ratio 11.4
[2020-08-12 04:20] LABS: Bilirubin, Total 0.6 mg/dL (0.2-1.0); Phosphorus 2.6 mg/dL (2.5-4.90); Total Protein 4.8 g/dL (6.4-8.2)
[2020-08-12] MEDS: PROPOFOL 100 ML IV SCH ×2 (05:00→21:00)
[2020-08-12] MEDS: fentaNYL Drip 2500mCg/250mlNS 250 ML IV SCH (05:00)
[2020-08-12] MEDS: VANCOMYCIN 1GM/250ML 250 ML IV SCH ×2 (05:42→18:12)
[2020-08-12] MEDS: POTASSIUM CHLORIDE 20 MEQ in SOD CHL 0.45% 1,000 ML IV SCH ×3 (06:00→19:33)
[2020-08-12 10:35] LABS: Hemoglobin 9.3 g/dL (13.5-17.5)
[2020-08-12] MEDS: POTASSIUM CHL 20MEQ/100ML 100 ML IV SCH ×2 (10:40→11:15)
[2020-08-12] MEDS ORDERED: HEPARIN 1,000 UNITS/ml 1ML VIAL ONE (11:55)
[2020-08-12] MEDS ORDERED: PPN PER PHARMACY 0 ML IV SCH (17:15)
[2020-08-12] MEDS: NOREPINEPHRINE BITARTRATE 32 MG in SODIUM CHL 0.9% 218 ML IV SCH (17:44)
[2020-08-12] MEDS ORDERED: CLINIMIX PER PHARMACY 0 ML IV SCH (17:45)
[2020-08-12] MEDS: InsuLIN REG 1unit/0.01ml Soln (100units/ml) SC SCH ×2 (18:00→23:51)
[2020-08-12] MEDS ORDERED: DEXTROSE (50%) 50ML SYRG IV SCH (18:00)
[2020-08-12] MEDS: ACCU-CHEK COMFORT CURVE STRIP VI SCH ×2 (18:13→23:51)
[2020-08-12] MEDS ORDERED: MAGNESIUM SULFATE 1GM/100ML 100 ML IV ONE (18:30)
[2020-08-12] MEDS ORDERED: AMINO ACID INFUSION IN D10W 1,000 ML IV NR (20:00)
[2020-08-12] MEDS: PANTOPRAZOLE 40 MG/10 ML VIAL INJ IV SCH (21:46)
[2020-08-12 23:31] LABS: Hematocrit 26.9 % (41.0-53.0); Hemoglobin 9.2 g/dL (13.5-17.5)
[2020-08-13] VITALS (79 sets, daily range): BP systolic 96–163; BP diastolic 7–104
[2020-08-13 03:47] LABS: Basophils # (auto) 0 10 ^3/uL (0-0.2); Basophils % (auto) 0.5 % (0.0-2.0); Eosinophils # (auto) 0.3 10 ^3/uL (0-0.8); Eosinophils % (auto) 4.4 % (0.0-7.0); Hematocrit 27.7 % (41.0-53.0); Hemoglobin 9.4 g/dL (13.5-17.5); Lymphocytes # (auto) 2.9 10 ^3/uL (0.4-5.4); Lymphocytes % (auto) 38.2 % (10.0-50.0); Mean Corpuscular Hgb Conc. 33.9 g/dL (32.0-36.0); Mean Corpuscular Volume 94.7 fL (80.0-100.0); Monocytes # (auto) 0.7 10 ^3/uL (0-1.3); Monocytes % (auto) 9.4 % (0.0-12.0); Neutrophils # (auto) 3.7 10 ^3/uL (1.6-8.6); Neutrophils % (auto) 47.5 % (37.0-80.0); Nucleated Red Blood Cells % 0.1 %; Platelet Count (auto) 98 10^3/uL (140-450); Red Blood Cells 2.92 10^6/uL (4.5-5.90); White Blood Cell 7.7 10^3/uL (4.4-10.8)
[2020-08-13 04:09] LABS: Albumin 1.5 g/dL (3.4-5.0); Anion Gap 6 (5-15); Carbon Dioxide 24 mmol/L (21-32); Chloride 118 mmol/L (98-107); Potassium 4.2 mmol/L (3.5-5.1); Sodium 148 mmol/L (136-145)
[2020-08-13 04:16] LABS: Alanine Aminotransferase 17 U/L (16-61); Alkaline Phosphatase 116 U/L (45-117); Aspartate Aminotransferase 21 U/L (15-37); BUN/Creatinine Ratio 12.2; Bilirubin, Total 0.4 mg/dL (0.2-1.0); Blood Urea Nitrogen 5 mg/dL (7-18); GFR African American 270 mL/min; GFR Non-African American 223 mL/min; Glucose 108 mg/dL (74-106); Magnesium 1.4 mg/dL (1.6-2.6); Phosphorus 2.8 mg/dL (2.5-4.90); Pre Albumin < 3.0 mg/dL (20.0-40.0); Total Protein 4.7 g/dL (6.4-8.2); Triglycerides 215 mg/dL (< 150)
[2020-08-13] MEDS: fentaNYL Drip 2500mCg/250mlNS 250 ML IV SCH (05:15)
[2020-08-13] MEDS: InsuLIN REG 1unit/0.01ml Soln (100units/ml) SC SCH ×4 (05:33→23:55)
[2020-08-13] MEDS: VANCOMYCIN 1GM/250ML 250 ML IV SCH ×2 (05:33→17:21)
[2020-08-13] MEDS: ACCU-CHEK COMFORT CURVE STRIP VI SCH ×4 (05:33→23:55)
[2020-08-13] MEDS: PANTOPRAZOLE 40 MG/10 ML VIAL INJ IV SCH ×2 (09:47→22:35)
[2020-08-13] MEDS ORDERED: PANTOPRAZOLE 40 MG/10 ML VIAL INJ IV SCH (10:00)
[2020-08-13] MEDS ORDERED: MAGNESIUM SULFATE 1GM/100ML 100 ML IV ONE (10:45)
[2020-08-13] MEDS: SOD CHL 0.45% WITH 20MEQ KCL 1,000 ML IV SCH ×2 (11:23→23:55)
[2020-08-13] MEDS ORDERED: MAGNESIUM SULFATE 1GM/100ML 100 ML IV SCH (12:00)
[2020-08-13] MEDS: NOREPINEPHRINE BITARTRATE 32 MG in SODIUM CHL 0.9% 218 ML IV SCH (14:30)
[2020-08-13] MEDS ORDERED: ACETAMINOPHEN 325 MG TAB PO ONE (18:05)
[2020-08-13 18:30] LABS: Hematocrit 25.9 % (41.0-53.0); Hemoglobin 9.1 g/dL (13.5-17.5)
[2020-08-13] MEDS ORDERED: AMINO ACID INFUSION IN D10W 1,000 ML IV NR (20:00)
[2020-08-13 22:56] LABS: Hematocrit 27.1 % (41.0-53.0); Hemoglobin 9.4 g/dL (13.5-17.5)
[2020-08-14] VITALS (99 sets, daily range): BP systolic 87–170; BP diastolic 54–91
[2020-08-14 04:06] LABS: Basophils # (auto) 0.1 10 ^3/uL (0-0.2); Basophils % (auto) 0.6 % (0.0-2.0); Eosinophils # (auto) 0.1 10 ^3/uL (0-0.8); Eosinophils % (auto) 1.4 % (0.0-7.0); Hematocrit 26.4 % (41.0-53.0); Lymphocytes % (auto) 31.2 % (10.0-50.0); Mean Corpuscular Hemoglobin 31.7 pg (28.0-32.0); Mean Corpuscular Hgb Conc. 34.3 g/dL (32.0-36.0); Mean Corpuscular Volume 92.6 fL (80.0-100.0); Monocytes % (auto) 10.5 % (0.0-12.0); Neutrophils # (auto) 5.4 10 ^3/uL (1.6-8.6); Neutrophils % (auto) 56.3 % (37.0-80.0); Platelet Count (auto) 177 10^3/uL (140-450); Red Blood Cells 2.85 10^6/uL (4.5-5.90); Red Cell Distribution Width 14.7 % (11.8-14.3); White Blood Cell 9.6 10^3/uL (4.4-10.8)
[2020-08-14 04:25] LABS: Potassium 3.4 mmol/L (3.5-5.1)
[2020-08-14 04:32] LABS: Albumin 1.6 g/dL (3.4-5.0); BUN/Creatinine Ratio 8.9; Bilirubin, Total 0.6 mg/dL (0.2-1.0); Calcium 6.9 mg/dL (8.5-10.1); Magnesium 1.4 mg/dL (1.6-2.6); Phosphorus 2.1 mg/dL (2.5-4.90); Total Protein 5.2 g/dL (6.4-8.2)
[2020-08-14] MEDS: fentaNYL Drip 2500mCg/250mlNS 250 ML IV SCH (05:15)
[2020-08-14] MEDS: InsuLIN REG 1unit/0.01ml Soln (100units/ml) SC SCH ×3 (06:00→18:00)
[2020-08-14] MEDS: ACCU-CHEK COMFORT CURVE STRIP VI SCH ×3 (06:19→18:00)
[2020-08-14] MEDS: VANCOMYCIN 1GM/250ML 250 ML IV SCH ×2 (06:27→19:32)
[2020-08-14] MEDS ORDERED: PANTOPRAZOLE 40 MG/10 ML VIAL INJ IV SCH (10:00)
[2020-08-14] MEDS ORDERED: POTASSIUM CHL 20MEQ/100ML 100 ML IV SCH (10:30)
[2020-08-14] MEDS: PANTOPRAZOLE 80 MG in SODIUM CHL 0.9% 80 ML IV SCH ×2 (10:31→22:13)
[2020-08-14] MEDS ORDERED: POTASSIUM PHOSPHATE 44 MEQ in D5W 5% 250 ML IV ONE (11:00)
[2020-08-14] MEDS: MAGNESIUM SULFATE 1GM/100ML 100 ML IV SCH ×3 (11:36→13:00)
[2020-08-14] MEDS ORDERED: FUROSEMIDE 40 MG/4 ML VIAL IV ONE (12:30)
[2020-08-14] MEDS: SOD CHL 0.45% WITH 20MEQ KCL 1,000 ML IV SCH (13:25)
[2020-08-14] MEDS ORDERED: AMINO ACID INFUSION IN D10W 1,000 ML IV NR (20:00)
[2020-08-14] MEDS: ACETAMINOPHEN 650 mg PER 20.3 mL UD GT PRN (20:10)
[2020-08-14] MEDS ORDERED: PANTOPRAZOLE 40 MG/10 ML VIAL INJ IV ONE (23:47)
[2020-08-15] VITALS (75 sets, daily range): BP systolic 136–178; BP diastolic 69–117
[2020-08-15] MEDS: SOD CHL 0.45% WITH 20MEQ KCL 1,000 ML IV SCH ×2 (02:45→14:09)
[2020-08-15 04:19] LABS: Hematocrit 24.4 % (41.0-53.0); Hemoglobin 8.6 g/dL (13.5-17.5)
[2020-08-15 04:41] LABS: Albumin 1.6 g/dL (3.4-5.0); Calcium 6.8 mg/dL (8.5-10.1); Magnesium 1.5 mg/dL (1.6-2.6); Potassium 3.3 mmol/L (3.5-5.1)
[2020-08-15 04:44] LABS: Bilirubin, Total 0.4 mg/dL (0.2-1.0); Phosphorus 2.7 mg/dL (2.5-4.90); Total Protein 5.4 g/dL (6.4-8.2)
[2020-08-15] MEDS: InsuLIN REG 1unit/0.01ml Soln (100units/ml) SC SCH ×4 (06:00→17:47)
[2020-08-15] MEDS: VANCOMYCIN 1GM/250ML 250 ML IV SCH ×2 (06:00→17:49)
[2020-08-15] MEDS: ACCU-CHEK COMFORT CURVE STRIP VI SCH ×4 (06:00→17:48)
[2020-08-15] MEDS: PANTOPRAZOLE 80 MG in SODIUM CHL 0.9% 80 ML IV SCH ×2 (08:59→22:19)
[2020-08-15] MEDS: MAGNESIUM SULFATE 1GM/100ML 100 ML IV SCH ×2 (10:02→11:25)
[2020-08-15] MEDS ORDERED: POTASSIUM PHOSPHATE 44 MEQ in D5W 5% 250 ML IV ONE (12:00)
[2020-08-15] MEDS ORDERED: hydrALAZINE HCL 20 MG/ML VL IV PRN (13:30)
[2020-08-15] MEDS ORDERED: FUROSEMIDE 40 MG/4 ML VIAL IV ONE (17:30)
[2020-08-15] MEDS ORDERED: AMINO ACID INFUSION IN D10W 1,000 ML IV NR (20:00)
[2020-08-15] MEDS: ACETAMINOPHEN 650 mg PER 20.3 mL UD GT PRN (20:26)
[2020-08-15] MEDS ORDERED: PANTOPRAZOLE 40 MG/10 ML VIAL INJ IV SCH (22:00)
[2020-08-15] MEDS ORDERED: IBUPROFEN 600 MG TAB PO ONE ×2 (23:22→23:30)
[2020-08-15] MEDS ORDERED: LORazepam 2MG/ML-1ML VIAL IV ONE (23:30)
[2020-08-16] VITALS (58 sets, daily range): BP systolic 129–271; BP diastolic 65–230
[2020-08-16] MEDS: ACCU-CHEK COMFORT CURVE STRIP VI SCH ×2 (00:17→06:09)
[2020-08-16] MEDS: ACETAMINOPHEN 650 mg PER 20.3 mL UD GT PRN ×2 (02:28→22:05)
[2020-08-16 04:39] LABS: Hemoglobin 8.9 g/dL (13.5-17.5)
[2020-08-16 04:58] LABS: Albumin 1.9 g/dL (3.4-5.0); Calcium 7.6 mg/dL (8.5-10.1); Magnesium 1.6 mg/dL (1.6-2.6); Potassium 3.3 mmol/L (3.5-5.1)
[2020-08-16 05:01] LABS: BUN/Creatinine Ratio 10.2; Bilirubin, Total 0.5 mg/dL (0.2-1.0); Total Protein 6.1 g/dL (6.4-8.2)
[2020-08-16] MEDS: InsuLIN REG 1unit/0.01ml Soln (100units/ml) SC SCH ×2 (06:00)
[2020-08-16] MEDS: VANCOMYCIN 1GM/250ML 250 ML IV SCH (06:09)
[2020-08-16] MEDS: SOD CHL 0.45% WITH 20MEQ KCL 1,000 ML IV SCH (06:10)
[2020-08-16] MEDS ORDERED: FUROSEMIDE 40 MG/4 ML VIAL IV ONE (10:15)
[2020-08-16] MEDS ORDERED: METOPROLOL TARTRATE 1MG/1ML-5ML VIAL IV PRN (10:15)
[2020-08-16] MEDS: MAGNESIUM SULFATE 1GM/100ML 100 ML IV SCH ×2 (10:53→12:38)
[2020-08-16] MEDS: POTASSIUM CHL 20MEQ/100ML 100 ML IV SCH ×3 (10:53→15:52)
[2020-08-16] MEDS: PANTOPRAZOLE 80 MG in SODIUM CHL 0.9% 80 ML IV SCH ×2 (11:13→22:03)
[2020-08-16] MEDS ORDERED: levoFLOXacin 750MG 150 ML IV ONE (12:15)
[2020-08-16] MEDS ORDERED: LINEZOLID 600MG/300ML 300 ML IV ONE (12:30)
[2020-08-16] MEDS: D5W/SOD CHLO 0.9% 1,000 ML IV SCH (12:38)
[2020-08-16] MEDS: LABETALOL HCL 5 MG/ML 4ML SYRINGE IV PRN ×2 (15:09→22:07)
[2020-08-16] MEDS: MORPHINE SULF INJ 2 MG/ML SYRINGE 1ML IV PRN (15:18)
[2020-08-16] MEDS ORDERED: AMINO ACID INFUSION IN D10W 1,000 ML IV NR (20:00)
[2020-08-16] MEDS: LINEZOLID 600MG/300ML 300 ML IV SCH (22:04)
[2020-08-17] VITALS (31 sets, daily range): BP systolic 129–171; BP diastolic 54–79
[2020-08-17] MEDS: LABETALOL HCL 5 MG/ML 4ML SYRINGE IV PRN ×3 (00:40→06:00)
[2020-08-17] MEDS: MORPHINE SULF INJ 2 MG/ML SYRINGE 1ML IV PRN (00:42)
[2020-08-17] MEDS: D5W/SOD CHLO 0.9% 1,000 ML IV SCH ×2 (01:50→15:10)
[2020-08-17 04:11] LABS: Basophils # (auto) 0.1 10 ^3/uL (0-0.2); Basophils % (auto) 0.5 % (0.0-2.0); Eosinophils # (auto) 0 10 ^3/uL (0-0.8); Eosinophils % (auto) 0.4 % (0.0-7.0); Hematocrit 24.4 % (41.0-53.0); Hemoglobin 8.2 g/dL (13.5-17.5); Lymphocytes # (auto) 2.4 10 ^3/uL (0.4-5.4); Lymphocytes % (auto) 21.7 % (10.0-50.0); Mean Corpuscular Hemoglobin 31.5 pg (28.0-32.0); Mean Corpuscular Hgb Conc. 33.6 g/dL (32.0-36.0); Mean Corpuscular Volume 93.7 fL (80.0-100.0); Monocytes # (auto) 0.9 10 ^3/uL (0-1.3); Monocytes % (auto) 8.4 % (0.0-12.0); Neutrophils # (auto) 7.6 10 ^3/uL (1.6-8.6); Nucleated Red Blood Cells % 0.1 %; Platelet Count (auto) 229 10^3/uL (140-450); Red Blood Cells 2.61 10^6/uL (4.5-5.90); Red Cell Distribution Width 14.7 % (11.8-14.3); White Blood Cell 11.1 10^3/uL (4.4-10.8)
[2020-08-17 04:26] LABS: INR 1.2 (0.9-1.15); Partial Thromboplastin Time 27.6 sec (23.0-31.2)
[2020-08-17 04:30] LABS: Albumin 1.7 g/dL (3.4-5.0); Calcium 7.3 mg/dL (8.5-10.1); Magnesium 1.6 mg/dL (1.6-2.6); Potassium 3.3 mmol/L (3.5-5.1)
[2020-08-17 04:34] LABS: BUN/Creatinine Ratio 9.7; Bilirubin, Total 0.6 mg/dL (0.2-1.0); Total Protein 5.6 g/dL (6.4-8.2)
[2020-08-17] MEDS: PANTOPRAZOLE 80 MG in SODIUM CHL 0.9% 80 ML IV SCH ×2 (09:12→22:00)
[2020-08-17] MEDS: levoFLOXacin 750MG 150 ML IV SCH (09:36)
[2020-08-17] MEDS: LINEZOLID 600MG/300ML 300 ML IV SCH ×2 (11:05→22:00)
[2020-08-17] MEDS: MAGNESIUM SULFATE 1GM/100ML 100 ML IV SCH ×2 (13:09→14:19)
[2020-08-17] MEDS: LIDOCAINE 1% (LOCAL ANESTH.) PF 5ml SDV ID ONE ×2 (15:30→16:12)
[2020-08-17] MEDS ORDERED: TPN PER PHARMACY 0 ML IV SCH (16:00)
[2020-08-17] MEDS: POTASSIUM CHL 20MEQ/100ML 100 ML IV SCH ×2 (16:34→19:45)
[2020-08-17] MEDS ORDERED: DEXTROSE (50%) 50ML SYRG IV SCH (18:00)
[2020-08-17] MEDS: InsuLIN REG 1unit/0.01ml Soln (100units/ml) SC SCH (18:00)
[2020-08-17] MEDS: ACCU-CHEK COMFORT CURVE STRIP VI SCH (18:21)
[2020-08-17] MEDS ORDERED: AMINO ACID INFUSION IN D10W 1,000 ML IV NR (20:00)
[2020-08-17] MEDS: SODIUM CHLOR 0.9% PF (SALINE LOCK) 10ML VIAL/SYR IV SCH (22:00)
[2020-08-18] VITALS (15 sets, daily range): BP systolic 140–183; BP diastolic 57–94
[2020-08-18] MEDS: LABETALOL HCL 5 MG/ML 4ML SYRINGE IV PRN ×2 (01:47→09:55)
[2020-08-18] MEDS: MORPHINE SULF INJ 2 MG/ML SYRINGE 1ML IV PRN ×2 (03:21→13:38)
[2020-08-18] MEDS: D5W/SOD CHLO 0.9% 1,000 ML IV SCH ×2 (04:23→17:39)
[2020-08-18 04:24] LABS: Basophils # (auto) 0 10 ^3/uL (0-0.2); Basophils % (auto) 0.4 % (0.0-2.0); Eosinophils # (auto) 0.2 10 ^3/uL (0-0.8); Eosinophils % (auto) 1.8 % (0.0-7.0); Hematocrit 23.5 % (41.0-53.0); Lymphocytes # (auto) 2.8 10 ^3/uL (0.4-5.4); Lymphocytes % (auto) 27.3 % (10.0-50.0); Mean Corpuscular Hemoglobin 31.7 pg (28.0-32.0); Mean Corpuscular Hgb Conc. 33.9 g/dL (32.0-36.0); Mean Corpuscular Volume 93.5 fL (80.0-100.0); Monocytes # (auto) 1.1 10 ^3/uL (0-1.3); Monocytes % (auto) 10.4 % (0.0-12.0); Neutrophils # (auto) 6.1 10 ^3/uL (1.6-8.6); Neutrophils % (auto) 60.1 % (37.0-80.0); Nucleated Red Blood Cells % 0.1 %; Platelet Count (auto) 232 10^3/uL (140-450); Red Blood Cells 2.51 10^6/uL (4.5-5.90); White Blood Cell 10.1 10^3/uL (4.4-10.8)
[2020-08-18] MEDS ORDERED: hydrALAZINE HCL 20 MG/ML VL IV ONE (05:00)
[2020-08-18] MEDS: InsuLIN REG 1unit/0.01ml Soln (100units/ml) SC SCH ×4 (05:40→17:42)
[2020-08-18] MEDS: ACCU-CHEK COMFORT CURVE STRIP VI SCH ×4 (05:40→17:42)
[2020-08-18] MEDS: ALBUTEROL SULF 2.5 MG/0.5ML(0.5%) NEB SOLN NEB PRN (06:23)
[2020-08-18] MEDS: IPRATROPIUM BROM 0.5 MG/2.5ML INH SOL NEB PRN (06:23)
[2020-08-18 07:56] LABS: Albumin 1.7 g/dL (3.4-5.0); Calcium 7.2 mg/dL (8.5-10.1); Potassium 3.5 mmol/L (3.5-5.1)
[2020-08-18 08:03] LABS: BUN/Creatinine Ratio 7.8; Bilirubin, Total 0.4 mg/dL (0.2-1.0); Phosphorus 2.5 mg/dL (2.5-4.90); Pre Albumin 6.4 mg/dL (20.0-40.0); Total Protein 5.8 g/dL (6.4-8.2)
[2020-08-18] MEDS: levoFLOXacin 750MG 150 ML IV SCH (09:54)
[2020-08-18] MEDS: LINEZOLID 600MG/300ML 300 ML IV SCH ×2 (09:55→22:00)
[2020-08-18] MEDS: SODIUM CHLOR 0.9% PF (SALINE LOCK) 10ML VIAL/SYR IV SCH ×2 (10:00→22:00)
[2020-08-18] MEDS: PANTOPRAZOLE 80 MG in SODIUM CHL 0.9% 80 ML IV SCH ×2 (10:00→22:00)
[2020-08-18] MEDS ORDERED: POTASSIUM PHOSPHATE 33 MEQ in D5W 5% 250 ML IV ONE (13:45)
[2020-08-18] MEDS ORDERED: TPN PER PHARMACY IV NR ×8 (20:00)
[2020-08-19] MEDS: ALBUTEROL SULF 2.5 MG/0.5ML(0.5%) NEB SOLN NEB PRN ×3 (01:36→10:16)
[2020-08-19] MEDS: IPRATROPIUM BROM 0.5 MG/2.5ML INH SOL NEB PRN ×3 (01:37→10:16)
[2020-08-19 05:24] VITALS: BP 177/74
[2020-08-19] MEDS: ACCU-CHEK COMFORT CURVE STRIP VI SCH ×4 (06:00→17:34)
[2020-08-19] MEDS: InsuLIN REG 1unit/0.01ml Soln (100units/ml) SC SCH ×4 (06:00→17:35)
[2020-08-19 06:02] LABS: Basophils # (auto) 0 10 ^3/uL (0-0.2); Eosinophils # (auto) 0.1 10 ^3/uL (0-0.8)
[2020-08-19 06:07] LABS: Albumin 1.7 g/dL (3.4-5.0); Calcium 6.2 mg/dL (8.5-10.1); Magnesium 1.5 mg/dL (1.6-2.6); Potassium 3.1 mmol/L (3.5-5.1)
[2020-08-19 06:09] LABS: Basophils % (auto) 0.5 % (0.0-2.0); Eosinophils % (auto) 0.8 % (0.0-7.0); Hematocrit 22.7 % (41.0-53.0); Hemoglobin 7.9 g/dL (13.5-17.5); Lymphocytes # (auto) 2.9 10 ^3/uL (0.4-5.4); Lymphocytes % (auto) 31.8 % (10.0-50.0); Mean Corpuscular Hemoglobin 32.1 pg (28.0-32.0); Mean Corpuscular Volume 91.9 fL (80.0-100.0); Monocytes % (auto) 11.4 % (0.0-12.0); Neutrophils % (auto) 55.5 % (37.0-80.0); Nucleated Red Blood Cells % 0.2 %; Platelet Count (auto) 263 10^3/uL (140-450); Red Blood Cells 2.47 10^6/uL (4.5-5.90); Red Cell Distribution Width 14.8 % (11.8-14.3); White Blood Cell 9.1 10^3/uL (4.4-10.8)
[2020-08-19 06:11] LABS: BUN/Creatinine Ratio 9.2; Bilirubin, Total 0.5 mg/dL (0.2-1.0); Total Protein 5.4 g/dL (6.4-8.2)
[2020-08-19] MEDS: D5W/SOD CHLO 0.9% 1,000 ML IV SCH ×2 (07:10→20:30)
[2020-08-19] MEDS ORDERED: MAGNESIUM SULFATE 1GM/100ML 100 ML IV ONE (09:00)
[2020-08-19 09:08] VITALS: BP 186/86
[2020-08-19] MEDS: ACETAMINOPHEN 650 mg PER 20.3 mL UD GT PRN (09:26)
[2020-08-19] MEDS: LINEZOLID 600MG/300ML 300 ML IV SCH ×2 (09:29→21:23)
[2020-08-19] MEDS: LABETALOL HCL 5 MG/ML 4ML SYRINGE IV PRN ×2 (09:29→21:02)
[2020-08-19] MEDS ORDERED: CALCIUM GLUC 1,000mg/50ml-NS 50 ML IV ONE (10:00)
[2020-08-19 10:49] VITALS: BP 186/86
[2020-08-19] MEDS: PANTOPRAZOLE 80 MG in SODIUM CHL 0.9% 80 ML IV SCH ×2 (11:08→21:24)
[2020-08-19] MEDS: MORPHINE SULF INJ 2 MG/ML SYRINGE 1ML IV PRN ×3 (11:09→23:54)
[2020-08-19] MEDS: SODIUM CHLOR 0.9% PF (SALINE LOCK) 10ML VIAL/SYR IV SCH ×2 (11:09→21:23)
[2020-08-19] MEDS: levoFLOXacin 750MG 150 ML IV SCH (11:54)
[2020-08-19] MEDS ORDERED: POTASSIUM PHOSPHATE 22 MEQ in SODIUM CHL 0.9% 100 ML IV ONE (12:00)
[2020-08-19 12:52] VITALS: BP 150/87
[2020-08-19 16:36] VITALS: BP 149/91
[2020-08-19] MEDS ORDERED: TPN PER PHARMACY IV NR ×9 (20:00)
[2020-08-19 21:43] VITALS: BP 164/83
[2020-08-20] MEDS: IPRATROPIUM BROM 0.5 MG/2.5ML INH SOL NEB PRN ×3 (02:38→18:39)
[2020-08-20] MEDS: ALBUTEROL SULF 2.5 MG/0.5ML(0.5%) NEB SOLN NEB PRN ×3 (02:38→18:39)
[2020-08-20] MEDS: LABETALOL HCL 5 MG/ML 4ML SYRINGE IV PRN ×2 (03:52→16:55)
[2020-08-20 04:46] VITALS: BP 166/81
[2020-08-20] MEDS: ACCU-CHEK COMFORT CURVE STRIP VI SCH ×4 (05:35→17:19)
[2020-08-20] MEDS: InsuLIN REG 1unit/0.01ml Soln (100units/ml) SC SCH ×4 (05:36→17:19)
[2020-08-20 06:30] LABS: Basophils # (auto) 0 10 ^3/uL (0-0.2); Basophils % (auto) 0.4 % (0.0-2.0); Eosinophils # (auto) 0.1 10 ^3/uL (0-0.8); Eosinophils % (auto) 1.6 % (0.0-7.0); Hemoglobin 7.7 g/dL (13.5-17.5); Lymphocytes # (auto) 2.9 10 ^3/uL (0.4-5.4); Lymphocytes % (auto) 31.7 % (10.0-50.0); Mean Corpuscular Hemoglobin 32.5 pg (28.0-32.0); Mean Corpuscular Hgb Conc. 35.2 g/dL (32.0-36.0); Mean Corpuscular Volume 92.4 fL (80.0-100.0); Monocytes # (auto) 0.8 10 ^3/uL (0-1.3); Monocytes % (auto) 9.2 % (0.0-12.0); Neutrophils # (auto) 5.2 10 ^3/uL (1.6-8.6); Neutrophils % (auto) 57.1 % (37.0-80.0); Nucleated Red Blood Cells % 0.1 %; Platelet Count (auto) 216 10^3/uL (140-450); Red Blood Cells 2.38 10^6/uL (4.5-5.90); Red Cell Distribution Width 15.2 % (11.8-14.3); White Blood Cell 9.1 10^3/uL (4.4-10.8)
[2020-08-20 06:51] LABS: Albumin 1.8 g/dL (3.4-5.0); Calcium 7.4 mg/dL (8.5-10.1); Magnesium 1.9 mg/dL (1.6-2.6); Potassium 3.7 mmol/L (3.5-5.1)
[2020-08-20 06:54] LABS: BUN/Creatinine Ratio 10.7; Bilirubin, Total 0.4 mg/dL (0.2-1.0); Phosphorus 3.6 mg/dL (2.5-4.90)
[2020-08-20 08:00] VITALS: BP 148/87
[2020-08-20] MEDS: D5W/SOD CHLO 0.9% 1,000 ML IV SCH ×2 (10:21→14:44)
[2020-08-20] MEDS: levoFLOXacin 750MG 150 ML IV SCH (10:21)
[2020-08-20] MEDS: LINEZOLID 600MG/300ML 300 ML IV SCH ×2 (10:22→21:37)
[2020-08-20] MEDS: SODIUM CHLOR 0.9% PF (SALINE LOCK) 10ML VIAL/SYR IV SCH ×2 (10:22→22:00)
[2020-08-20] MEDS: PANTOPRAZOLE 80 MG in SODIUM CHL 0.9% 80 ML IV SCH ×2 (11:37→21:38)
[2020-08-20] MEDS: MORPHINE SULF INJ 2 MG/ML SYRINGE 1ML IV PRN ×2 (11:39→16:56)
[2020-08-20 11:55] VITALS: BP 150/95
[2020-08-20] MEDS ORDERED: MAGNESIUM SULFATE 1GM/100ML 100 ML IV ONE (13:30)
[2020-08-20 16:00] VITALS: BP 167/72
[2020-08-20] MEDS ORDERED: TPN PER PHARMACY IV NR ×11 (20:00)
[2020-08-20 22:18] VITALS: BP 157/79
[2020-08-21] MEDS: MORPHINE SULF INJ 2 MG/ML SYRINGE 1ML IV PRN ×3 (00:47→18:45)
[2020-08-21 04:52] VITALS: BP 168/77
[2020-08-21 05:42] LABS: Basophils # (auto) 0 10 ^3/uL (0-0.2); Basophils % (auto) 0.4 % (0.0-2.0); Eosinophils # (auto) 0.1 10 ^3/uL (0-0.8); Hematocrit 22.8 % (41.0-53.0); Hemoglobin 7.8 g/dL (13.5-17.5); Lymphocytes # (auto) 2.5 10 ^3/uL (0.4-5.4); Mean Corpuscular Hemoglobin 31.6 pg (28.0-32.0); Mean Corpuscular Hgb Conc. 34.1 g/dL (32.0-36.0); Mean Corpuscular Volume 92.7 fL (80.0-100.0); Monocytes % (auto) 9.9 % (0.0-12.0); Neutrophils # (auto) 6.7 10 ^3/uL (1.6-8.6); Neutrophils % (auto) 64.7 % (37.0-80.0); Platelet Count (auto) 212 10^3/uL (140-450); Red Blood Cells 2.46 10^6/uL (4.5-5.90); Red Cell Distribution Width 14.9 % (11.8-14.3); White Blood Cell 10.3 10^3/uL (4.4-10.8)
[2020-08-21] MEDS: D5W/SOD CHLO 0.9% 1,000 ML IV SCH (05:55)
[2020-08-21] MEDS: InsuLIN REG 1unit/0.01ml Soln (100units/ml) SC SCH ×4 (06:00→17:29)
[2020-08-21] MEDS: ACCU-CHEK COMFORT CURVE STRIP VI SCH ×4 (06:00→17:29)
[2020-08-21 06:01] LABS: Albumin 1.9 g/dL (3.4-5.0); Calcium 7.5 mg/dL (8.5-10.1)
[2020-08-21 06:05] LABS: BUN/Creatinine Ratio 10.5; Bilirubin, Total 0.4 mg/dL (0.2-1.0); Phosphorus 3.3 mg/dL (2.5-4.90); Total Protein 6.1 g/dL (6.4-8.2)
[2020-08-21] MEDS: ALBUTEROL SULF 2.5 MG/0.5ML(0.5%) NEB SOLN NEB PRN ×4 (06:52→21:44)
[2020-08-21] MEDS: IPRATROPIUM BROM 0.5 MG/2.5ML INH SOL NEB PRN ×4 (06:52→21:44)
[2020-08-21 08:54] VITALS: BP 155/78
[2020-08-21] MEDS: SODIUM CHLOR 0.9% PF (SALINE LOCK) 10ML VIAL/SYR IV SCH ×2 (10:28→22:00)
[2020-08-21] MEDS: levoFLOXacin 750MG 150 ML IV SCH (10:28)
[2020-08-21] MEDS: PANTOPRAZOLE 80 MG in SODIUM CHL 0.9% 80 ML IV SCH ×2 (10:29→22:00)
[2020-08-21] MEDS: LINEZOLID 600MG/300ML 300 ML IV SCH ×2 (10:29→22:00)
[2020-08-21 13:00] VITALS: BP 141/83
[2020-08-21 16:59] VITALS: BP 139/81
[2020-08-21] MEDS ORDERED: TPN PER PHARMACY IV NR ×11 (20:00)
[2020-08-21] MEDS: LABETALOL HCL 5 MG/ML 4ML SYRINGE IV PRN (21:17)
[2020-08-21 21:58] VITALS: BP 166/97
[2020-08-22] MEDS: MORPHINE SULF INJ 2 MG/ML SYRINGE 1ML IV PRN ×4 (00:30→20:25)
[2020-08-22 04:47] VITALS: BP 167/83
[2020-08-22] MEDS: LABETALOL HCL 5 MG/ML 4ML SYRINGE IV PRN (05:05)
[2020-08-22 05:51] LABS: Hematocrit 20.6 % (41.0-53.0); Hemoglobin 7.2 g/dL (13.5-17.5)
[2020-08-22] MEDS: ACCU-CHEK COMFORT CURVE STRIP VI SCH ×4 (06:00→17:25)
[2020-08-22] MEDS: InsuLIN REG 1unit/0.01ml Soln (100units/ml) SC SCH ×4 (06:00→17:25)
[2020-08-22 06:07] LABS: Potassium 3.9 mmol/L (3.5-5.1)
[2020-08-22 06:17] LABS: Albumin 1.8 g/dL (3.4-5.0); BUN/Creatinine Ratio 11.6; Bilirubin, Total 0.6 mg/dL (0.2-1.0); Calcium 7.3 mg/dL (8.5-10.1); Phosphorus 3.4 mg/dL (2.5-4.90); Total Protein 6.1 g/dL (6.4-8.2)
[2020-08-22 09:00] VITALS: BP 123/68
[2020-08-22] MEDS: LINEZOLID 600MG/300ML 300 ML IV SCH ×2 (09:37→22:00)
[2020-08-22] MEDS: levoFLOXacin 750MG 150 ML IV SCH (09:37)
[2020-08-22] MEDS: SODIUM CHLOR 0.9% PF (SALINE LOCK) 10ML VIAL/SYR IV SCH ×2 (09:37→22:00)
[2020-08-22] MEDS: ACETYLCYSTEINE 20%(200MG/ML) SOL 4ML NEB SCH ×2 (11:15→22:45)
[2020-08-22] MEDS ORDERED: FUROSEMIDE 40 MG/4 ML VIAL IV ONE (11:15)
[2020-08-22] MEDS ORDERED: POTASSIUM CHL 20MEQ/100ML 100 ML IV ONE (11:15)
[2020-08-22] MEDS: IPRATROPIUM BROM 0.5 MG/2.5ML INH SOL NEB PRN ×2 (11:16→22:45)
[2020-08-22] MEDS: ALBUTEROL SULF 2.5 MG/0.5ML(0.5%) NEB SOLN NEB PRN ×2 (11:16→22:45)
[2020-08-22] MEDS: PANTOPRAZOLE 80 MG in SODIUM CHL 0.9% 80 ML IV SCH ×2 (11:38→22:00)
[2020-08-22 13:00] VITALS: BP 139/83
[2020-08-22] MEDS ORDERED: LIDOCAINE VISCOUS 2% 15ML UD ONE (13:20)
[2020-08-22] MEDS ORDERED: SODIUM CHLORIDE LOCK 10 ML ONE (13:20)
[2020-08-22] MEDS ORDERED: diphenhdrAMINE HCL 50 MG/1 ML VL ONE (13:21)
[2020-08-22] MEDS ORDERED: CLINDAMYCIN 600MG IV 50 ML IV ONE (14:28)
[2020-08-22] MEDS: MIDAZOLAM HCL 5 MG/ML-1ML VIAL ONE ×3 (14:58→15:06)
[2020-08-22] MEDS: fentaNYL CITRATE 100 MCG/2 ML VL ONE ×3 (14:59→15:06)
[2020-08-22 15:17] VITALS: BP 139/83
[2020-08-22 16:59] VITALS: BP 133/71
[2020-08-22] MEDS ORDERED: TPN PER PHARMACY IV NR ×11 (20:00)
[2020-08-22 22:08] VITALS: BP 131/47
[2020-08-23] MEDS: MORPHINE SULF INJ 2 MG/ML SYRINGE 1ML IV PRN ×3 (02:50→20:19)
[2020-08-23 04:58] VITALS: BP 137/70
[2020-08-23] MEDS: ACETYLCYSTEINE 20%(200MG/ML) SOL 4ML NEB SCH ×3 (05:43→22:24)
[2020-08-23] MEDS: IPRATROPIUM BROM 0.5 MG/2.5ML INH SOL NEB PRN ×3 (05:43→22:24)
[2020-08-23] MEDS: ALBUTEROL SULF 2.5 MG/0.5ML(0.5%) NEB SOLN NEB PRN ×3 (05:43→22:24)
[2020-08-23] MEDS: InsuLIN REG 1unit/0.01ml Soln (100units/ml) SC SCH ×4 (05:47→18:00)
[2020-08-23] MEDS: ACCU-CHEK COMFORT CURVE STRIP VI SCH ×4 (05:48→18:08)
[2020-08-23 06:50] LABS: Basophils # (auto) 0.1 10 ^3/uL (0-0.2); Basophils % (auto) 0.6 % (0.0-2.0); Eosinophils # (auto) 0.2 10 ^3/uL (0-0.8); Eosinophils % (auto) 2.8 % (0.0-7.0); Hematocrit 20.9 % (41.0-53.0); Hemoglobin 7.2 g/dL (13.5-17.5); Lymphocytes % (auto) 37.6 % (10.0-50.0); Mean Corpuscular Hemoglobin 32.2 pg (28.0-32.0); Mean Corpuscular Hgb Conc. 34.5 g/dL (32.0-36.0); Mean Corpuscular Volume 93.5 fL (80.0-100.0); Monocytes # (auto) 0.9 10 ^3/uL (0-1.3); Monocytes % (auto) 11.5 % (0.0-12.0); Neutrophils # (auto) 3.8 10 ^3/uL (1.6-8.6); Neutrophils % (auto) 47.5 % (37.0-80.0); Nucleated Red Blood Cells % 0.1 %; Platelet Count (auto) 170 10^3/uL (140-450); Red Blood Cells 2.24 10^6/uL (4.5-5.90); Red Cell Distribution Width 14.8 % (11.8-14.3); White Blood Cell 8.1 10^3/uL (4.4-10.8)
[2020-08-23] MEDS: Ensure Enlive Vanilla 8oz Bottle PO SCH ×17 (07:00→23:00)
[2020-08-23 07:06] LABS: Potassium 3.8 mmol/L (3.5-5.1)
[2020-08-23 07:14] LABS: Albumin 1.9 g/dL (3.4-5.0); BUN/Creatinine Ratio 11.8; Bilirubin, Total 0.6 mg/dL (0.2-1.0); Calcium 7.7 mg/dL (8.5-10.1); Phosphorus 3.7 mg/dL (2.5-4.90); Total Protein 6.4 g/dL (6.4-8.2)
[2020-08-23 07:16] LABS: INR 1.24 (0.9-1.15); Partial Thromboplastin Time 32.2 sec (23.0-31.2)
[2020-08-23 09:00] VITALS: BP 109/71
[2020-08-23] MEDS: levoFLOXacin 750MG 150 ML IV SCH (09:38)
[2020-08-23] MEDS: LINEZOLID 600MG/300ML 300 ML IV SCH ×2 (09:39→22:00)
[2020-08-23] MEDS: SODIUM CHLOR 0.9% PF (SALINE LOCK) 10ML VIAL/SYR IV SCH ×2 (09:39→22:00)
[2020-08-23] MEDS: PANTOPRAZOLE 80 MG in SODIUM CHL 0.9% 80 ML IV SCH (09:39)
[2020-08-23] MEDS: FLORASTOR (S. BOULARDII) 250 MG CAP PO SCH (10:00)
[2020-08-23 12:52] VITALS: BP 128/67
[2020-08-23 17:00] VITALS: BP 102/50
[2020-08-23] MEDS: SUCRALFATE 1 GM/10 ML ORAL SUSP GT SCH ×2 (17:00→22:00)
[2020-08-23 22:00] VITALS: BP 119/51
[2020-08-23] MEDS: OMEPRAZOLE 20MG/10ML ORAL SUSP PEG SCH (22:00)
[2020-08-23] MEDS ORDERED: OMEPRAZOLE 20MG/10ML ORAL SUSP PEG SCH (22:00)
[2020-08-24] MEDS: MORPHINE SULF INJ 2 MG/ML SYRINGE 1ML IV PRN ×5 (00:41→22:00)
[2020-08-24] MEDS: Ensure Enlive Vanilla 8oz Bottle PO SCH ×8 (01:00→06:47)
[2020-08-24 05:00] VITALS: BP 110/59
[2020-08-24] MEDS: ACETYLCYSTEINE 20%(200MG/ML) SOL 4ML NEB SCH ×3 (05:52→22:00)
[2020-08-24] MEDS: IPRATROPIUM BROM 0.5 MG/2.5ML INH SOL NEB PRN ×2 (05:53→13:54)
[2020-08-24] MEDS: ALBUTEROL SULF 2.5 MG/0.5ML(0.5%) NEB SOLN NEB PRN ×2 (05:53→13:54)
[2020-08-24] MEDS: InsuLIN REG 1unit/0.01ml Soln (100units/ml) SC SCH ×2 (06:00)
[2020-08-24] MEDS: ACCU-CHEK COMFORT CURVE STRIP VI SCH ×2 (06:00)
[2020-08-24] MEDS: SUCRALFATE 1 GM/10 ML ORAL SUSP GT SCH ×4 (06:47→22:00)
[2020-08-24] MEDS ORDERED: SUCR1SUS10 GT (08:52)
[2020-08-24] MEDS ORDERED: SACC250C GT (08:52)
[2020-08-24] MEDS ORDERED: OME20GT GT (08:52)
[2020-08-24] MEDS ORDERED: ALBUAER3 IN (08:52)
[2020-08-24] MEDS ORDERED: LINE1TAB6 GT (08:52)
[2020-08-24] MEDS ORDERED: MET25T PO (08:55)
[2020-08-24 09:00] VITALS: BP 122/53
[2020-08-24] MEDS: OMEPRAZOLE 20MG/10ML ORAL SUSP PEG SCH ×2 (10:52→22:00)
[2020-08-24] MEDS: FLORASTOR (S. BOULARDII) 250 MG CAP PO SCH (10:53)
[2020-08-24] MEDS: METOPROLOL TARTRATE 25 MG TAB PEG SCH ×3 (10:53→23:00)
[2020-08-24] MEDS: SODIUM CHLOR 0.9% PF (SALINE LOCK) 10ML VIAL/SYR IV SCH ×2 (10:54→22:00)
[2020-08-24 12:12] LABS: Hematocrit 20.3 % (41.0-53.0)
[2020-08-24] MEDS: LINEZOLID 600MG/300ML 300 ML IV SCH ×2 (12:17→22:00)
[2020-08-24 12:19] LABS: Hemoglobin 6.9 g/dL (13.5-17.5)
[2020-08-24 12:52] VITALS: BP 115/64
[2020-08-24 17:00] VITALS: BP 138/66
[2020-08-24] MEDS: Jevity 1.2 Cal/Fiber 1 Liter GT SCH ×2 (17:41→22:00)
[2020-08-24 22:00] VITALS: BP 143/67
[2020-08-25] VITALS (10 sets, daily range): BP systolic 118–163; BP diastolic 59–94
[2020-08-25] MEDS: Jevity 1.2 Cal/Fiber 1 Liter GT SCH ×3 (02:12→07:32)
[2020-08-25] MEDS: MORPHINE SULF INJ 2 MG/ML SYRINGE 1ML IV PRN ×2 (02:13→08:40)
[2020-08-25] MEDS: SUCRALFATE 1 GM/10 ML ORAL SUSP GT SCH ×2 (07:00→11:36)
[2020-08-25] MEDS: ACETYLCYSTEINE 20%(200MG/ML) SOL 4ML NEB SCH (07:35)
[2020-08-25] MEDS: ALBUTEROL SULF 2.5 MG/0.5ML(0.5%) NEB SOLN NEB PRN (07:45)
[2020-08-25] MEDS: LINEZOLID 600MG/300ML 300 ML IV SCH (09:16)
[2020-08-25] MEDS: METOPROLOL TARTRATE 25 MG TAB PEG SCH (09:17)
[2020-08-25] MEDS: FLORASTOR (S. BOULARDII) 250 MG CAP PO SCH (09:17)
[2020-08-25] MEDS: SODIUM CHLOR 0.9% PF (SALINE LOCK) 10ML VIAL/SYR IV SCH (09:17)
[2020-08-25] MEDS: OMEPRAZOLE 20MG/10ML ORAL SUSP PEG SCH (09:17)
[2020-08-25 09:44] LABS: Hemoglobin 8.2 g/dL (13.5-17.5)
== END 2020-08-25 13:30 | disposition hospice, inpatient (51) | DRG 870 ==
LOC: ER 02:48 → TELE 02:49 → ICU WEST 08:15 → TELE-CENTR 08-18 10:54
PROVIDERS: ADMIT Nurse Practitioner Family; ATTEND Internal Medicine
PROC: 5A1955Z Respiratory Ventilation, Greater than 96 Consecutive Hours (ICD-10-PCS; principal; 2020-08-04)
PROC: 0BH18EZ Insertion of Endotracheal Airway into Trachea, Via Natural or Artificial Opening Endoscopic (ICD-10-PCS; 2020-08-04)
PROC: 30230N1 Transfusion of Nonautologous Red Blood Cells into Peripheral Vein, Open Approach (ICD-10-PCS; 2020-08-05)
PROC: 0DB68ZX Excision of Stomach, Via Natural or Artificial Opening Endoscopic, Diagnostic (ICD-10-PCS; 2020-08-07)
PROC: 0DB88ZX Excision of Small Intestine, Via Natural or Artificial Opening Endoscopic, Diagnostic (ICD-10-PCS; 2020-08-07)
PROC: 30233K1 Transfusion of Nonautologous Frozen Plasma into Peripheral Vein, Percutaneous Approach (ICD-10-PCS; 2020-08-09)
PROC: 0DJ08ZZ Inspection of Upper Intestinal Tract, Via Natural or Artificial Opening Endoscopic (ICD-10-PCS; 2020-08-10)
PROC: 02HV33Z Insertion of Infusion Device into Superior Vena Cava, Percutaneous Approach (ICD-10-PCS; 2020-08-10)
PROC: B548ZZA Ultrasonography of Superior Vena Cava, Guidance (ICD-10-PCS; 2020-08-10)
PROC: 5A09357 Assistance with Respiratory Ventilation, Less than 24 Consecutive Hours, Continuous Positive Airway Pressure (ICD-10-PCS; 2020-08-13)
PROC: 5A09357 Assistance with Respiratory Ventilation, Less than 24 Consecutive Hours, Continuous Positive Airway Pressure (ICD-10-PCS; 2020-08-16)
PROC: 5A09357 Assistance with Respiratory Ventilation, Less than 24 Consecutive Hours, Continuous Positive Airway Pressure (ICD-10-PCS; 2020-08-17)
PROC: 0DH63UZ Insertion of Feeding Device into Stomach, Percutaneous Approach (ICD-10-PCS; 2020-08-22)
PROC: 3E0G76Z Introduction of Nutritional Substance into Upper GI, Via Natural or Artificial Opening (ICD-10-PCS; 2020-08-22)
PROC: 0DJ08ZZ Inspection of Upper Intestinal Tract, Via Natural or Artificial Opening Endoscopic (ICD-10-PCS; 2020-08-22)
DX: A41.1 Sepsis due to other specified staphylococcus (principal); N17.0 Acute kidney failure with tubular necrosis; J96.01 Acute respiratory failure with hypoxia; G93.41 Metabolic encephalopathy; J69.0 Pneumonitis due to inhalation of food and vomit; K26.4 Chronic or unspecified duodenal ulcer with hemorrhage; K22.11 Ulcer of esophagus with bleeding; K29.71 Gastritis, unspecified, with bleeding; K29.81 Duodenitis with bleeding; J98.11 Atelectasis; J44.0 Chronic obstructive pulmonary disease with (acute) lower respiratory infection; N39.0 Urinary tract infection, site not specified; Z99.11 Dependence on respirator [ventilator] status; Z20.822 Contact with and (suspected) exposure to COVID-19; Z66 Do not resuscitate; Z51.5 Encounter for palliative care; I95.9 Hypotension, unspecified; E87.6 Hypokalemia; E88.09 Other disorders of plasma-protein metabolism, not elsewhere classified; D69.59 Other secondary thrombocytopenia; E83.42 Hypomagnesemia; B95.62 Methicillin resistant Staphylococcus aureus infection as the cause of diseases classified elsewhere; E86.0 Dehydration; Z79.899 Other long term (current) drug therapy; I12.9 Hypertensive chronic kidney disease with stage 1 through stage 4 chronic kidney disease, or unspecified chronic kidney disease; N18.31 Chronic kidney disease, stage 3a; K21.9 Gastro-esophageal reflux disease without esophagitis; B95.2 Enterococcus as the cause of diseases classified elsewhere; D64.9 Anemia, unspecified; E78.5 Hyperlipidemia, unspecified; F17.210 Nicotine dependence, cigarettes, uncomplicated; K44.9 Diaphragmatic hernia without obstruction or gangrene; K76.0 Fatty (change of) liver, not elsewhere classified; Z86.73 Personal history of transient ischemic attack (TIA), and cerebral infarction without residual deficits
CPT/HCPCS: 31500; 31720; 36415; 36556; 36569; 36600; 43235; 43239; 43246; 51702; 70450; 71045; 71250; 74176; 76705; 80048; 80053; 80061; 80202; 81001; 82040; 82746; 82805; 82962; 83036; 83605; 83615; 83690; 83735; 83880; 84100; 84132; 84478; 84484; 85014; 85018; 85025; 85379; 85610; 85730; 86677; 86704; 86706; 86708; 86803; 86850; 86900; 86901; 86920; 87040; 87070; 87077; 87081; 87086; 87186; 87205; 87340; 87426; 87493; 92507; 92610; 93005; 94002; 94003; 94640; 94660; 96365; 96366; 97110; 97163; 97530; 99291; C9113; G0378; J0330; J0696; J1815; J1956; J2250; J2704; J3480; J3490; J7042; J7060; J7131; P9047